=== PATIENT | male | born 1950 | race Caucasian/White ===

== ENCOUNTER 2021-10-12 14:56 | Emergency (ER) | payer MEDICARE, OTHER ==
[~2021-10-12] VITALS: Ht 175.3 cm; Wt 81.7 kg
[2021-10-12] MEDS ORDERED: METPRE4DP PO (16:14)
[2021-10-12] MEDS ORDERED: COLCHICINE0.6 MG PO (16:20)
== END 2021-10-12 16:57 | disposition home or self-care (01) ==
LOC: ER 14:56
DX: M10.9 Gout, unspecified (principal)
CPT/HCPCS: 99283; A9270

== ENCOUNTER → 2023-05-20 | Outpatient (CLI) | payer OTHER ==
[~2023-05-20] MED LIST: COLCHICINE0.6 MG PO; METPRE4DP PO
== END ==
LOC: LAB SHORT 12:06 → LAB 12:06 → PLD 12:06
DX: L82.1 Other seborrheic keratosis (principal)
CPT/HCPCS: 88305

== ENCOUNTER 2024-06-22 08:59 | Emergency (ER) | payer OTHER ==
[~2024-06-22] VITALS: Ht 175.3 cm; Wt 83.9 kg
[2024-06-22] MEDS ORDERED: Ketorolac Tromethamine 15mg Vial IM ONE (10:40)
[2024-06-22] MEDS ORDERED: Acetaminophen 500 MG Tab PO ONE (10:40)
[2024-06-22] MEDS ORDERED: ACET500 PO (10:42)
[2024-06-22] MEDS ORDERED: INDO50 PO (10:42)
[2024-06-22 10:44] VITALS: BP 124/85
== END 2024-06-22 11:08 | disposition home or self-care (01) ==
LOC: ER 08:59
DX: M10.9 Gout, unspecified (principal); Z79.899 Other long term (current) drug therapy
CPT/HCPCS: 96372; 99283-25; A9270; J1885

== ENCOUNTER 2024-11-15 14:02 | Emergency (ER) | payer OTHER ==
[~2024-11-15] VITALS: Ht 172.7 cm; Wt 77.1 kg
[~2024-11-15 14:02] MED LIST changes: +ACET500 PO; +INDO50 PO
[2024-11-15 14:29] VITALS: BP 135/79
[2024-11-15] MEDS ORDERED: IBUP800 PO (14:34)
[2024-11-15] MEDS ORDERED: HYDROCODONE-AC1 EA10 PO (14:35)
== END 2024-11-15 14:35 | disposition home or self-care (01) ==
LOC: ER 14:02
DX: M10.9 Gout, unspecified (principal); I10 Essential (primary) hypertension; Z79.899 Other long term (current) drug therapy
CPT/HCPCS: 99283